=== PATIENT | male | born 1990 | race Two or more races ===

== ENCOUNTER 2020-08-23 10:46 | Outpatient (REF) | payer OTHER, SELFPAY | END 2020-08-23 10:47 | disposition home or self-care (01) | LOC: HO.LAB 10:46 | PROVIDERS: Visit Provider Internal Medicine | DX: Z20.822 Contact with and (suspected) exposure to COVID-19 (principal) | CPT/HCPCS: 36415; C9803; U0003 ==

== ENCOUNTER 2021-03-04 12:07 | Emergency (ER) | payer SELFPAY ==
[2021-03-04 12:13] VITALS: BP 111/64; PULSE 99; RESP 16; TEMP 37.3; O2SAT 98; BMI 21.4
--- NOTE | 2021-03-04 12:48 | ED.SKABFB ---
HPI - Skin/Abscess/Foreign Bdy General Chief complaint: Skin/Abscess/Foreign Body Stated complaint: Abbcess Time Seen by Provider: 03/04/21 12:25 Source: patient Mode of arrival: ambulatory Limitations: no limitations History of Present Illness HPI narrative: 30 y/o male presenting to the ER with red, swollen and tender bug bites to his anterior left lower leg that have been worsening for the last 4 days. He recalls being bit by mosquitoes at the time. Since then he has 2 spots on his left aguilar that have gotten red, warm and swollen. No tick bites. No fevers. He has 2 small pustules in the center of each lesion. He is ambulating normally. He has no calf pain, swelling or tenderness. MD complaint: insect bite/sting and abscess/boil Onset (ago): day(s) (4) Tetanus up to date: yes Location: LLE Severity: moderate Severity scale (1-10): 5 Quality: burning and aching Pain Consistency: constant Relieving factors: none Exacerbating factors: none Context: witnessed insect bite Associated symptoms: denies other symptoms Treatments prior to arrival: none Related Data Previous Rx's Medication Instructions Recorded cephalexin 500 mg capsule 500 mg PO Q6H 7 Days #28 cap 03/04/21 doxycycline monohydrate 100 mg 100 mg PO BID #14 cap 03/04/21 capsule Allergies Allergy/AdvReac Type Severity Reaction Status Date / Time No Known Allergies Allergy Unverified 04/14/20 15:50 Review of Systems Constitutional: Constitutional: Denies chills, Denies fatigue and Denies fever(s) Eyes: Eyes: Reports no additional eye complaints ENT: Denies neck pain and Denies sore throat Cardiovascular: Cardiovascular: Denies chest pain Respiratory: Respiratory: Denies cough Gastrointestinal: Gastrointestinal: Denies diarrhea, Denies nausea and Denies vomiting Musculoskeletal: Musculoskeletal: Denies myalgias and Denies neck pain Integumentary/Breasts: Skin/Breast: Reports furuncle, Reports swelling, Reports lesions, Reports skin pain and Reports skin swelling Endocrine: Endocrine: Denies fatigue Hematologic/Lymphatic: Hematologic/Lymphatic: Denies easy bleeding, Denies easy bruising and Denies lymphadenopathy PMFSH Social History Social History Advance Directives: No Advance Directives Information Provided: No Physical Exam Vital Signs: Vital Signs: Last Vital Signs Temp 99.1 F 03/04/21 12:13 Pulse 99 03/04/21 12:13 Resp 16 03/04/21 12:13 BP 111/64 03/04/21 12:13 Pulse Ox 98 03/04/21 12:13 Body Mass Index 21.4 Appearance: Alert. Oriented X3. No acute distress. HEENT: normal inspection CVS: Normal heart rate and rhythm. Pulses normal. Respiratory: No respiratory distress. Skin: Skin warm and dry. Normal skin color. Normal skin turgor. No rashes. Extremities: left lower leg with 2 moderate sized erythematous areas with central pustules, no fluctuance. no calf tenderness. NV intact distally. Neuro: Oriented X 3. No motor deficit. No sensory deficit. Course Course Course Narrative: 30 y/o male presenting with 2 areas of tenderness, redness and warmth after he was bit by insects 4 days ago. Exam is consistent with cellulitis. No drainage abscess at this time. Doubt Lyme. Will treat with PO abx, warm compresses and have him follow up with his PCP early next week. Stable for d/c home. Discharge Plan Discharge Clinical Impression: Cellulitis Qualifiers: Site of cellulitis: extremity Site of cellulitis of extremity: lower extremity Laterality: left Qualified Code(s): L03.116 - Cellulitis of left lower limb Patient Disposition: Home, Self-Care Instructions: Cellulitis (ED), Abscess (ED) Additional Instructions: Take the prescribed antibiotics as directed. Use warm compresses several times per day to the areas. Take Motrin and/or Tylenol as needed for pain. If you develop new or worsening symptoms call 911 or come back to the ER for further evaluation. Prescriptions: New cephalexin 500 mg capsule 500 mg PO Q6H 7 Days Qty: 28 RF: 0 doxycycline monohydrate 100 mg capsule 100 mg PO BID Qty: 14 RF: 0 Interventions: ED Discharge Assessment Last Done: 03/04/21 12:55 Discharge Date/Time: 03/04/21 12:56
== END 2021-03-04 12:56 | disposition home or self-care (01) ==
PROVIDERS: Emergency Provider Emergency Medicine Emergency Medical Services
DX: L03.116 Cellulitis of left lower limb (principal)
CPT/HCPCS: 99283

== ENCOUNTER 2021-03-07 15:27 | Emergency (ER) | payer SELFPAY ==
[2021-03-07 17:06] VITALS: BP 107/73; PULSE 77; RESP 18; TEMP 37.2; O2SAT 98; BMI 22.1
[2021-03-07 17:42] LABS: MANUAL DIFF FLAG NO
[2021-03-07 17:43] LABS: Basophils Percent Auto 0.5 % (0-2); Eosinophils Absolute Auto 0.1 X10*3/uL (0.0-0.4); Hemoglobin 13.1 g/dl (14.0-18.0); Imm Gran Abs Auto 0.02 X10*3/uL (0.00-0.03); Imm Gran Pct Auto 0.2 % (0.0-0.4); Lymphocytes Absolute Auto 2.4 X10*3/uL (1.2-4.9); Lymphocytes Percent Auto 28.2 % (20-40); Mean Corpuscular HGB Conc 33.6 g/dl (31.0-36.0); Mean Corpuscular Volume 92.2 fL (80-98); Mean Platelet Volume 9.5 fL (9.4-12.4); Monocytes Absolute Auto 0.8 X10*3/uL (0.1-1.2); Monocytes Percent Auto 9.4 % (2-11); Neutrophils Absolute Auto 5.1 X10*3/uL (2.0-8.3); Neutrophils Percent Auto 60.7 % (45-73); Platelet Count 311 X10*3/uL (160-400); Red Blood Count 4.23 X10*6/uL (4.60-5.80); Red Cell Distribution Width 12.2 % (11.0-16.0); White Blood Count 8.4 X10*3/uL (4.8-10.8)
[2021-03-07 18:03] LABS: Anion Gap 11 (12-20); Blood Urea Nitrogen 13 mg/dL (9-16); Calcium 9.8 mg/dL (8.4-10.2); Carbon Dioxide 27 mmol/L (22-29); Chloride 106 mmol/L (96-108); Creatinine Clr Calc Pharmacy 115.7; Estimated Glomerular Filt Rate > 60; Glucose Random 134 mg/dL (60-115); Potassium 3.7 mmol/L (3.3-5.1); Sodium 140 mmol/L (135-145)
[2021-03-07 20:57] VITALS: BP 118/70; PULSE 65; RESP 16; TEMP 36.3; O2SAT 98
--- NOTE | 2021-03-07 21:09 | ED_ITS ---
HPI - Skin/Abscess/Foreign Bdy General Chief complaint: Skin/Abscess/Foreign Body Stated complaint: bug bite Time Seen by Provider: 03/07/21 20:58 Source: patient Mode of arrival: ambulatory Limitations: no limitations History of Present Illness HPI narrative: Patient tells me he was seen on March 04 for cellulitis of his left lower extremity. He was started on cephalexin and doxycycline. He is here today because he feels like the wounds are draining. He tells me the redness is much improved. He has been doing warm compresses daily. He has had no fevers or chills. He has been taking his antibiotics as prescribed. He tells me initially he felt something bite to his left lower extremity and then noticed swelling and redness the next day. He did not see the bug that bit him. Related Data Previous Rx's Medication Instructions Recorded cephalexin 500 mg capsule 500 mg PO Q6H 7 Days #28 cap 03/04/21 doxycycline monohydrate 100 mg 100 mg PO BID #14 cap 03/04/21 capsule Allergies Allergy/AdvReac Type Severity Reaction Status Date / Time No Known Allergies Allergy Unverified 04/14/20 15:50 Review of Systems Review of Systems: Yes all other systems are reviewed and are negative Constitutional: Constitutional: Reports no additional constitutional complaints, Denies body ache(s), Denies chills, Denies fever(s), Denies headache(s) and Denies weakness Eyes: Eyes: Reports no additional eye complaints and Denies change in vision ENT: Reports system reviewed and no additional complaints, except as documented, Denies dizziness, Denies headache(s), Denies nasal congestion, Denies nasal discharge and Denies neck pain Cardiovascular: Cardiovascular: Reports no additional cardiovascular complaints, Denies chest pain, Denies leg edema and Denies dyspnea Respiratory: Respiratory: Reports no additional respiratory complaints, Denies cough and Denies dyspnea Gastrointestinal: Gastrointestinal: Reports no additional gastrointestinal complaints, Denies abdominal pain, Denies diarrhea, Denies nausea and Denies vomiting Genitourinary: Genitourinary: Denies urinary incontinence Musculoskeletal: Musculoskeletal: Reports no additional musculoskeletal complaints, Denies back pain, Denies arthralgias, Denies joint swelling, Denies neck pain, Denies numbness and Denies tingling Integumentary/Breasts: Skin/Breast: Reports system reviewed and no additional complaints, except as docu, Reports swelling, Reports erythema and Reports rash Neurologic: Reports system reviewed and no additional complaints, except as documented, Denies Abnormal speech present, Denies dizziness, Denies headache(s), Denies numbness, Denies tingling and Denies weakness PMFSH Past Medical History Attestation statement: The following information was validated with the patient. Source: old records reviewed and nursing notes reviewed Medical History Appendicitis Social History Social History Advance Directives: No Advance Directives Information Provided: No Physical Exam Vital Signs: Vital Signs: Last Vital Signs Temp 97.4 F 03/07/21 20:57 Pulse 65 03/07/21 20:57 Resp 16 03/07/21 20:57 BP 118/70 03/07/21 20:57 Pulse Ox 98 03/07/21 20:57 Body Mass Index 22.1 Const: General: cooperative, healthy appearing, comfortable and no acute distress Orientation/consciousness: patient oriented x3 Limitations: no li mitations HENMT: Head: Yes normal to inspection Ears: hearing grossly normal bilaterally General nose exam: Normal external nose present Face and sinus: Yes normal facial exam Mouth: Normal oral and palatal mucosa present Throat: Yes posterior oropharynx normal Eyes: General: appearance normal, both eyes and all related structures Pupils: Equal, round and reactive pupils present Neck: Neck: Yes normal visual inspection Chest: Chest palpation & inspection: normal inspection of the chest Resp: Effort & Inspection: normal respiratory effort Auscultation: clear to auscultation bilaterally Cardio: Rate: regular rate Rhythm: regular rhythm Peripheral pulses: Peripheral pulses 2+ throughout GI: Inspection: Yes normal to inspection Palpation (GI): Soft to palpation and nontender Auscultation: normal bowel sounds Back/Spine/Pelvis: Thoracic/Lumbar Spine: thoracic and lumbar spine normal to inspection Skin: Other: General skin exam: no rashes or lesions noted Neuro: General: patient oriented x3, no focal motor deficits and normal sensation to monofilament Cranial nerves: Yes Equal, round and reactive pupils present Cognition (Neuro): normal cognition Speech: No Abnormal speech present Gait exam (Neuro): Normal gait present Motor exam (neuro): 5/5 motor strength present throughout Extrem: General: Yes normal to inspection Course Course Course Narrative: Patient being treated for cellulitis in the left lower extremity with doxycycline and cephalexin for the last 2 days. The patient feels like the redness is improving but feels like there is more drainage centrally from the wound. No reports of fevers or chills at home. Labs from triage are unremarkable. To the leg there are 2 circular areas with central fluctuance. I was able to express some purulence drainage from both sites and a wound culture was sent. There is no obvious signs of a deeper fluid collection. The patient is appears well with no fever. Recommend continue antibiotics and warm compresses at home The area was marked with a skin marker. Reviewed worrisome signs and symptoms of when to return to the emergency department. Comfortable discharge home. MDM - Skin/Abscess/Foreign Bdy Lab Data Result diagrams: 03/07/21 17:38 03/07/21 17:37 Labs: Lab Results 03/07/21 03/07/21 Range/Units 17:37 17:38 WBC 8.4 (4.8-10.8) X10*3/uL RBC 4.23 L (4.60-5.80) X10*6/uL Hgb 13.1 L (14.0-18.0) g/dl Hct 39.0 L (42-52) % MCV 92.2 (80-98) fL MCH 31.0 (27.0-33.0) pg MCHC 33.6 (31.0-36.0) g/dl RDW 12.2 (11.0-16.0) % Plt Count 311 (160-400) X10*3/uL MPV 9.5 (9.4-12.4) fL Immature Gran % (Auto) 0.2 (0.0-0.4) % Neut % (Auto) 60.7 (45-73) % Lymph % (Auto) 28.2 (20-40) % [place] % (Auto) 9.4 (2-11) % Eos % (Auto) 1.0 (0-4) % Baso % (Auto) 0.5 (0-2) % Lymph # (Auto) 2.4 (1.2-4.9) X10*3/uL [place] # (Auto) 0.8 (0.1-1.2) X10*3/uL Eos # (Auto) 0.1 (0.0-0.4) X10*3/uL Baso # (Auto) 0.0 (0.0-0.2) X10*3/uL Abs Immat Gran (auto) 0.02 (0.00-0.03) X10*3/uL Absolute Neuts (auto) 5.1 (2.0-8.3) X10*3/uL Absolute Nucleated RBC 0.000 (0.0-0.012) X10*3/uL Nucleated RBC % (auto) 0.0 (0.0-0.2) /100WBC Sodium 140 (135-145) mmol/L Potassium 3.7 (3.3-5.1) mmol/L Chloride 106 (96-108) mmol/L Carbon Dioxide 27 (22-29) mmol/L Anion Gap 11 L (12-20) BUN 13 (9-16) mg/dL Creatinine 0.89 (0.5-1.4) mg/dL Estim Creat Clear Calc 115.7 Estimated GFR > 60 Random Glucose 134 H (60-115) mg/dL Calcium 9.8 (8.4-10.2) mg/dL Discharge Plan Discharge Clinical Impression: Cellulitis Patient Disposition: Home, Self-Care Instructions: Cellulitis (ED) Additional Instructions: Continue warm compresses We will call you if your antibiotics need to be changed Prescriptions: No Action cephalexin 500 mg capsule 500 mg PO Q6H 7 Days Qty: 28 RF: 0 doxycycline monohydrate 100 mg capsule 100 mg PO BID Qty: 14 RF: 0 Referrals: Physician,None [Primary Care Provider] - 2 days Interventions: ED Discharge Assessment Last Done: 03/07/21 21:14 Discharge Date/Time: 03/07/21 21:15
== END 2021-03-07 21:15 | disposition home or self-care (01) ==
PROVIDERS: Emergency Provider Emergency Medicine
DX: L03.116 Cellulitis of left lower limb (principal)
CPT/HCPCS: 36415; 80048; 85025; 87071; 87077; 87186; 87205; 99283

== ENCOUNTER → 2024-07-09 12:34 | Outpatient (BNVA) | payer OTHER, SELFPAY | PROVIDERS: Visit Provider Physician Assistant Medical | DX: S29.011A Strain of muscle and tendon of front wall of thorax, initial encounter (principal); S39.011A Strain of muscle, fascia and tendon of abdomen, initial encounter; W11.XXXA Fall on and from ladder, initial encounter | CPT/HCPCS: 71101; 99203 ==

== ENCOUNTER 2024-07-09 14:27 | Emergency (ER) | payer OTHER, SELFPAY ==
--- NOTE | ~2024-07-09 | CT_ITS ---
EXAMINATION: CT CHEST WITHOUT CONTRAST CLINICAL INFORMATION: Evaluate for right rib fractures. Fall from ladder. COMPARISON: Same-day radiographs TECHNIQUE: Multidetector volumetric CT imaging of the chest was done. Axial MIP volume rendering provided. Sagittal and coronal reformatted images were obtained. This CT examination was performed using dose optimization techniques as appropriate, variously including the following: *Automated exposure control *Adjustment of mA and/or kV according to patient size (this includes techniques or standardized protocols for targeted exams where dose is matched to indication/reason for exam; i.e. extremities or head) *Use of iterative reconstruction technique DLP: 262 mGy-cm FINDINGS: ENVELOPE ADJUSTER: Normal LUNGS: The lungs are clear with no evidence of inflammation or nodules. MEDIASTINUM: The mediastinum is normal. CORONARY ARTERY CALCIFICATION: None visualized on this study. PLEURA: There is no pleural effusion. No pleural mass or thickening. AXILLA: No lymphadenopathy. UPPER ABDOMEN: Unremarkable. OSSEOUS STRUCTURES: Unremarkable. Specifically, no rib fracture is identified. CT/CT chest wo IV con IMPRESSION: No rib fracture. No acute cardiopulmonary findings. Fleischner guidelines were followed. Electronically signed by: Kamran Farias MD 07/09/2024 06:13 PM [facility]
[2024-07-09 14:42] VITALS: BP 105/62; PULSE 61; RESP 18; TEMP 36.8; O2SAT 99; BMI 26.4
--- NOTE | 2024-07-09 14:49 | ED_ITS ---
HPI - Fall General Chief Complaint: Fall Stated Complaint: fall at work chest wall pain sent [facility] Time Seen by Provider: 07/09/24 17:41 Source: patient, RN notes reviewed and old records reviewed Mode of arrival: ambulatory Limitations: no limitations History of Present Illness ED Provider: Chan NARVAEZ Narrative: 34-year-old male presents for evaluation of right-sided flank pain and chest wall pain. Patient reports that yesterday he fell approximately 7 ft from a ladder. He landed on the ladder with his right side. He has continued pain in his worse with movement He did not hit his head or lose consciousness He reports at rest he has 4/10 pain and is achy When moving he has 8/10 pain He denies any cough, shortness of breath. No nausea vomiting, diarrhea He was sent from [facility] for right-sided chest wall pain Related Data Previous Rx's ?Medication ?Instructions ?Recorded cephalexin 500 mg capsule 500 mg PO Q6H 7 days #28 caps 03/04/21 doxycycline monohydrate 100 mg 100 mg PO BID #14 caps 03/04/21 capsule Allergies Allergy/AdvReac Type Severity Reaction Status Date / Time No Known Allergies Allergy Verified 07/09/24 14:46 Review of Systems 2 Constitutional: Constitutional: Denies body ache(s), Denies chills and Denies fever(s) Eyes: Eyes: Denies blurry vision ENT: Denies vertigo and Denies dizziness Cardiovascular: Cardiovascular: Reports chest pain (right chest wall pain), Reports chest pain at rest, Reports chest pain with activity and Denies dyspnea Respiratory: Respiratory: Denies cough and Denies dyspnea Gastrointestinal: Gastrointestinal: Reports abdominal pain, Denies nausea and Denies vomiting Musculoskeletal: Musculoskeletal: Reports back pain Integumentary/Breasts: Skin/Breast: Denies rash Neurologic: Denies vertigo and Denies dizziness Psychiatric: Psychiatric: Denies anxiety PMF Past Medical History Medical History Appendicitis Social History Social History (System 05/14/23 @ 16:47 by Melissa George) Do you have a plan to hurt others: No Plan Physical Exam 2 Vital Signs: Vital Signs: Last Vital Signs Temp 98.2 F 07/09/24 17:54 Pulse 56 07/09/24 17:54 Resp 20 07/09/24 17:54 BP 108/62 07/09/24 17:54 Pulse Ox 99 07/09/24 17:54 O2 Del Method Room Air 07/09/24 17:54 BMI result Body Mass Index 26.4 Const: General: healthy appearing, comfortable, no acute distress, alert and awake Nutritional Appearance: well nourished Orientation/consciousness: p atient oriented x3 HEENT: Head: Yes normocephalic and Yes atraumatic Eyes: Eyelids: Yes eyelids normal Conjunctivae: conjunctivae normal S clerae: sclerae normal Corneas: corneas normal Pupils: Equal, round and reactive pupils present EOM: EOMs intact bilaterally Neck: Neck: Yes full ROM Chest: Other: Tenderness in the right anterior axillary line midaxillary line and posterior axillary line at the level of the 8th through 12th ribs. Chest palpation & inspection: normal inspection of the chest and no crepitus Resp: Effort & Inspection: normal respiratory effort, able to speak in complete sentences, no audible wheezes and not labored Auscultation: clear to auscultation bilaterally Cardio: Rate: regular rate Rhythm: regular rhythm GI: Inspection: No distended Palpation (GI): Soft to palpation, not firm, Tenderness to palpation present (GI) in the RUQ; James's sign negative, no guarding and not rigid Auscultation: normoactive bowel sounds Skin: General skin exam: elasticity normal Neuro: General: patient oriented x3 Cranial nerves: Yes Equal, round and reactive pupils present and Yes Bilaterally intact EOM present Cognition (Neuro): normal cognition Course Course Course Narrative: This is a rapid medical exam performed by Geraldine Manzanares PA-C. The patient is a 34-year-old male who presents with right-sided rib pain x1 day. Patient was seen at the [facility], sent here for additional imaging. Chest x-ray obtained, no obvious rib fracture. On exam, patient is having palpable pain along right lateral and lower rib border. No deformity noted. Obtaining a CT scan. There was no indication for labs at this time. The patient is hemodynamically stable and can return to the waiting room pending his full medical assessment. Medical Decision Making Medical Decision Making MDM Narrative: 34-year-old male presents for evaluation of right-sided chest wall pain after a fall yesterday. He does have mild abdominal tenderness but mostly was tenderness over his ribs in the right lateral wall. His labs show no concerning abnormalities. He has a history of anemia is hemoglobin hematocrit are actually improved from his most recent labs 3 years ago. His renal function is within normal limits. CT scan of the chest without contrast shows no obvious rib fracture, pneumothorax no obvious fluid around the liver to suggest visceral injury. The patient will be discharged home with symptomatic care Differential Diagnosis Differential Diagnoses: The differential diagnosis associated with the presentation includes Contusion Rib fracture Pneumothorax Liver laceration Lab Data MDM Lab Attestation statement: I reviewed the patient's lab results. No leukocytosis. The patient has a chronic normocytic anemia. Normal platelet count. No significant electrolyte abnormalities 07/09/24 15:54 07/09/24 15:54 Labs: Lab Results 07/09/24 Range/Units 15:54 WBC 6.7 (4.8-10.8) X10*3/uL RBC 4.51 L (4.60-5.80) X10*6/uL Hgb 13.4 L (14.0-18.0) g/dl Hct 40.7 L (42.0-52.0) % MCV 90.2 (80.0-98.0) fL MCH 29.7 (27.0-33.0) pg MCHC 32.9 (31.0-36.0) g/dl RDW 12.3 (11.0-16.0) % Plt Count 314 (160-400) X10*3/uL MPV 9.6 (9.4-12.4) fL Immature Gran % (Auto) 0.3 (0.0-0.4) % Neut % (Auto) 56.1 (45-73) % Lymph % (Auto) 33.0 (20-40) % [place] % (Auto) 9.7 (2-11) % Eos % (Auto) 0.3 (0-4) % Baso % (Auto) 0.6 (0-2) % Lymph # (Auto) 2.2 (1.2-4.9) X10*3/uL [place] # (Auto) 0.7 (0.1-1.2) X10*3/uL Eos # (Auto) 0.0 (0.0-0.4) X10*3/uL Baso # (Auto) 0.0 (0.0-0.2) X10*3/uL Abs Immat Gran (auto) 0.02 (0.00-0.03) X10*3/uL Absolute Neuts (auto) 3.7 (2.0-8.3) x10*3/uL Absolute Nucleated RBC 0.000 (0.0-0.012) X10*3/uL Nucleated RBC % (auto) 0.0 (0.0-0.2) /100WBC Sodium 138 (135-145) mmol/L Potassium 3.9 (3.3-5.1) mmol/L Chloride 109 H (96-108) mmol/L Carbon Dioxide 25 (22-29) mmol/L Anion Gap 8 L (12-20) BUN 15 (9-16) mg/dL Creatinine 0.82 (0.5-1.4) mg/dL Estim Creat Clear Calc 121.6 Estimated GFR > 60 Random Glucose 88 (60-115) mg/dL Calcium 10.2 (8.4-10.2) mg/dL Independent Interpretation I performed an independent interpretation of an: CT Scan (Agree with Radiology interpretation) Radiology Impression Discussion of test interpretation with radiology: I have reviewed the radiologist's reading. Radiologist Impression: FINDINGS: SENIOR BEHAVIORAL SCIENTIST: Normal LUNGS: The lungs are clear with no evidence of inflammation or nodules. MEDIASTINUM: The mediastinum is normal. CORONARY ARTERY CALCIFICATION: None visualized on this study. PLEURA: There is no pleural effusion. No pleural mass or thickening. AXILLA: No lymphadenopathy. UPPER ABDOMEN: Unremarkable. OSSEOUS STRUCTURES: Unremarkable. Specifically, no rib fracture is identified. IMPRESSION: No rib fracture. No acute cardiopulmonary findings. Fleischner guidelines were followed. Electronically signed by: Kamran Farias MD 07/09/2024 06:13 PM [facility] Discharge Plan Discharge Clinical Impression: Right-sided chest wall pain Patient Disposition: Home, Self-Care Instructions: Chest Wall Pain (ED) Additional Instructions: Your CT scan did not show any evidence of acute traumatic injuries. Your pain is most likely related to a contusion. Use ibuprofen/Tylenol for pain Follow-up with your primary doctor, return for new or worsening symptoms Prescriptions: No Action cephalexin 500 mg capsule 500 mg PO Q6H 7 Days Qty: 28 0RF doxycycline monohydrate 100 mg capsule 100 mg PO BID Qty: 14 0RF Print Language: B[place]
[2024-07-09 15:57] LABS: MANUAL DIFF FLAG NO
[2024-07-09 16:05] LABS: Basophils Percent Auto 0.6 % (0-2); Eosinophils Percent Auto 0.3 % (0-4); Hematocrit 40.7 % (42.0-52.0); Hemoglobin 13.4 g/dl (14.0-18.0); Imm Gran Abs Auto 0.02 X10*3/uL (0.00-0.03); Imm Gran Pct Auto 0.3 % (0.0-0.4); Lymphocytes Absolute Auto 2.2 X10*3/uL (1.2-4.9); Mean Corpuscular HGB Conc 32.9 g/dl (31.0-36.0); Mean Corpuscular Hemoglobin 29.7 pg (27.0-33.0); Mean Corpuscular Volume 90.2 fL (80.0-98.0); Mean Platelet Volume 9.6 fL (9.4-12.4); Monocytes Absolute Auto 0.7 X10*3/uL (0.1-1.2); Monocytes Percent Auto 9.7 % (2-11); Neutrophils Absolute Auto 3.7 x10*3/uL (2.0-8.3); Neutrophils Percent Auto 56.1 % (45-73); Platelet Count 314 X10*3/uL (160-400); Red Blood Count 4.51 X10*6/uL (4.60-5.80); Red Cell Distribution Width 12.3 % (11.0-16.0); White Blood Count 6.7 X10*3/uL (4.8-10.8)
[2024-07-09 16:13] LABS: Anion Gap 8 (12-20); Blood Urea Nitrogen 15 mg/dL (9-16); Calcium 10.2 mg/dL (8.4-10.2); Carbon Dioxide 25 mmol/L (22-29); Chloride 109 mmol/L (96-108); Creatinine Clr Calc Pharmacy 121.6; Estimated Glomerular Filt Rate > 60; Glucose Random 88 mg/dL (60-115); Potassium 3.9 mmol/L (3.3-5.1); Sodium 138 mmol/L (135-145)
[2024-07-09 17:54] VITALS: BP 108/62; PULSE 56; RESP 20; TEMP 36.8; O2SAT 99
[2024-07-09] MEDS: Acetaminophen 325 MG TABLET 975 MG PO (18:42)
[2024-07-09 18:44] VITALS: BP 108/62; PULSE 56; RESP 20; TEMP 36.8; O2SAT 99
== END 2024-07-09 19:06 | disposition home or self-care (01) ==
PROVIDERS: Physician Assistant Medical; Emergency Provider Emergency Medicine
DX: Z04.2 Encounter for examination and observation following work accident (principal); R07.89 Other chest pain
CPT/HCPCS: 36415; 71250; 80048; 85025; 99283; 99284

== ENCOUNTER → 2024-08-31 12:14 | Outpatient (BNVA) | payer OTHER, SELFPAY | PROVIDERS: Visit Provider Physician Assistant Medical | DX: S63.501A Unspecified sprain of right wrist, initial encounter (principal); W00.0XXA Fall on same level due to ice and snow, initial encounter | CPT/HCPCS: 73110; 99203 ==

== ENCOUNTER 2024-09-09 18:23 | Outpatient (REF) | payer OTHER, SELFPAY ==
--- NOTE | ~2024-09-09 | MR_ITS ---
EXAMINATION: MR WRIST WITHOUT IV CONTRAST RIGHT HISTORY: FOOSH right side pain limited ROM and swelling. TECHNIQUE: Axial T1 and fat-suppressed T2, coronal T1 and fat-suppressed proton density, sagittal T2, and sagittal oblique T1 weighted MR images of the right wrist were obtained. COMPARISON: Correlation is made with plain films of the right wrist dated 08/31/2024. FINDINGS: There is marked bone marrow edema involving the distal radial metaphysis and epiphysis. There is cortical disruption at the dorsal aspect of the distal radius, consistent with a nondisplaced fracture. Remaining bone marrow signal intensity is normal. There is no significant wrist joint effusion. The scapholunate and lunotriquetral ligaments appear intact. There is increased T2 signal intensity at the ulnar attachment of the triangular fibrocartilage, suggestive of a partial tear. There is fluid within the tendon sheaths of the flexor carpi radialis brevis tendons, compatible with tenosynovitis. No tendon tear is identified. MR/MR wrist RT wo con IMPRESSION: 1. Findings consistent with a nondisplaced fracture of the distal radial metaphysis. 2. Increased signal intensity at the ulnar attachment of the triangular fibrocartilage, suggestive of a partial tear. 3. Tenosynovitis of the extensor carpi radialis longus and brevis tendons. Electronically signed by: Paul Zavala MD 09/10/2024 07:39 AM [facility]
--- OUTSIDE RECORDS SUMMARY | 2024-09-09 18:25 | XMS_ITS | Encounter Summary ---
Author Organization [facility] Address [address] [place] [phone] Phone Care Team Providers Care Second Chef Name Role Phone Iggy Mendez MD Primary Care Provider [phone] Encounter Details Date Type Department Care Team (Late st Contact Info) Description 01/05/2011 Documentation EM Family Medicine [address] [place] [address] Family Medicine, Physician [address] [place], [place] [id number] Social History Tobacco Use Types Packs/Day Years Used Date Smoking Tobacco: Never Assessed Sex and Gender Information Value Date Recorded Sex Assigned at Not on file Legal Sex Male 4:22 PM EDT Gender Identity Not on file Sexual Orientation Not on file documented as of this encounter Plan of Treatment Not on file documented as of this encounter Visit Diagnoses Not on filedocumented in this encounter Care Teams Second Chef Relationship Specialty Start Date End Date Iggy Mendez MD [address] [place] [id number] PCP - General 03/08/17 11/07/22 documented as of this encounter
--- OUTSIDE RECORDS SUMMARY | 2024-09-09 18:25 | XMS_ITS | Clinical Summary ---
Author Organization [facility] Address [address] [place] [address] Phone Care Team Providers Care Machine Finisher Name Role Phone Unavailable Primary Care Provider Unavailabl e Immunizations Immunization Administration Dates Next Due DTP 09/27/1994, 1,1989,1988,1989 Hep B, ped/adol 04/16/2002,06/06/2001,05/14/2001 Hib (PRP-T) 06/13/1990 MMR 06/16/2001, 1,09/27/1994,1989 OPV 09/27/1994, 1,1989,1988 Td (adult) (MBL), 2 Lf tetan us toxoid, PF, adsorbed 06/16/2001 Social History Tobacco Use Types Packs/Day Years Used Date Smoking Tobacco: Never Assessed Sex and Gender Information Value Date Recorded Sex Assigned at Not on file Legal Sex Male 4:22 PM EDT Gender Identity Not on file Sexual Orientation Not on file Plan of Treatment Health Maintenance Due Date Last Done Comments DTaP,Tdap,and Td Vaccines (6 - Tdap) 06/17/2001 06/16/2001, 09/27/1994, 11/17/1990, Additional history exists Varicella Vaccines (1 of 2 - 13+ 2-dose series) 2002 Hepatitis B Vaccines (3 of 3 - 3-dose series) 06/11/2002 04/16/2002, 06/06/2001, 05/14/2001 Consider Men B Vaccine (1 of 2 - Bexsero 2-dose series) 2005 Influenza Vaccines (#1) 2024 COVID-19 Vaccine ( season) 2024 HIB Vaccines Completed 06/13/1990 IPV Vaccines Completed 09/27/1994, 10/28, 1989, Additional history exists MMR Vaccines Completed 06/16/2001, 04/28, 09/27/1994, Additional history exists HPV Vaccines Aged Out No longer eligi ble based on patient's age to complete this topic Hepatitis A Vaccines Aged Out No long er eligible based on patient's age to complete this topic Men B Vaccine Aged Out No longer elig ible based on patient's age to complete this topic Meningococcal Vaccine Aged Out No maricruz danna eligible based on patient's age to complete this topic Pneumococcal Vaccine Aged Out No long er eligible based on patient's age to complete this topic
== END 2024-09-09 18:24 | disposition home or self-care (01) ==
LOC: HO.MRI 18:23
PROVIDERS: Visit Provider Internal Medicine
DX: R60.0 Localized edema (principal); M25.531 Pain in right wrist
CPT/HCPCS: 73221

== ENCOUNTER → 2024-09-09 18:33 | Outpatient (BNV) | payer OTHER, SELFPAY | PROVIDERS: Visit Provider Radiology Diagnostic Radiology | DX: S52.591A Other fractures of lower end of right radius, initial encounter for closed fracture (principal); M65.841 Other synovitis and tenosynovitis, right hand | CPT/HCPCS: 73221 ==

== ENCOUNTER → 2024-09-10 11:04 | Outpatient (BNVA) | payer OTHER, SELFPAY | PROVIDERS: Visit Provider Physician Assistant Medical | DX: S52.501A Unspecified fracture of the lower end of right radius, initial encounter for closed fracture (principal); S63.591A Other specified sprain of right wrist, initial encounter; W00.0XXA Fall on same level due to ice and snow, initial encounter | CPT/HCPCS: 99213 ==

== ENCOUNTER 2024-09-22 08:42 | Outpatient (REF) | payer OTHER, SELFPAY ==
--- NOTE | ~2024-09-22 | XR_ITS ---
CLINICAL HISTORY: M79.641 - Pain in right hand 4 view right wrist Comparison: None Findings: Bones intact. No dislocations. No significant loss of joint space, osteophyte, or erosions. No radiopaque foreign body. IMPRESSION: 1. No acute findings This document has been electronically signed by: Jez Block MD on 09/23/2024 10:17:57
--- OUTSIDE RECORDS SUMMARY | 2024-09-22 09:15 | XMS_ITS | Encounter Summary ---
Author Organization [facility] Address [address] [place] [address] Phone Care Team Providers Care Retail Service Lead Merchandiser Name Role Phone Iggy Mendez MD Primary Care Provider [phone] Encounter Details Date Type Department Care Team (Late st Contact Info) Description 03/14/2017 Conversion Encounter [facility] [employer] [facility] [address] [place] [address] Social History Tobacco Use Types Packs/Day Years [...] on filedocumented in this encounter Care Teams Retail Service Lead Merchandiser Relationship Specialty Start Date End Date Iggy Mendez MD [address] [place] [address] PCP - General 03/08/17 11/07/22 documented as of this encounter
--- OUTSIDE RECORDS SUMMARY | 2024-09-22 09:15 | XMS_ITS | Encounter Summary ---
Author Organization [facility] Address [address] [place] [address] Phone Care Team Providers Care Lining Inserter Name Role Phone Iggy Mendez MD Primary Care Provider [phone] Encounter Details Date Type Department Care Team (Late st Contact Info) Description 01/05/2011 Documentation EM Family [facility] [address] [place] [address] Family Medicine, Physician [address] [place], [place] [phone] Social History Tobacco Use Types Packs/Day Years [...] on filedocumented in this encounter Care Teams Lining Inserter Relationship Specialty Start Date End Date Iggy Mendez MD [address] [place] [address] PCP - General 03/08/17 11/07/22 documented as of this encounter
--- OUTSIDE RECORDS SUMMARY | 2024-09-22 09:15 | XMS_ITS | Clinical Summary ---
Author Organization [facility] Address [address] [place] [address] Phone Care Team Providers Care Gallery Director Name Role Phone Unavailable Primary Care Provider [...]
== END 2024-09-22 08:43 | disposition home or self-care (01) ==
LOC: HO.HOSX 08:42
DX: M79.641 Pain in right hand (principal); S63.501A Unspecified sprain of right wrist, initial encounter
CPT/HCPCS: 73110; 99202

== ENCOUNTER 2024-09-22 10:38 | Outpatient (AMB) | payer OTHER, SELFPAY ==
--- NOTE | 2024-09-22 10:41 | MHC.OFFVIS ---
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 Patient reports that he slipped on ice and fell on an outstretched hands twice while at work on 08/31/24. He was seen [facility] the day of the injury. He has been wearing a brace at all times, removes for hygiene purposes. He has pain in the wrist with lifting and grasping. He has some mild numbness at the base of the thumb. He is no longer taking anything for his pain, but he was previously taking Ibuprofen after the injury. He currently is on light duty with no use of the right hand. Allergies No Known Allergies Allergy (Verified 07/09/24 14:46) HPI HPI WC LOCKS TENDER -RT wrist sprain DOI 08/31/24: Details: Elio is a 34 year old right hand dominant male who presents today as a new patient for evaluation of his Right Wrist WC Injury from 08/31/24. Patient reports that he slipped on ice and fell on an outstretched hands twice while at work on 08/31/24. He was seen at the [facility] the day of the injury. He has been wearing a brace at all times, removes for hygiene purposes. He has pain in the wrist with lifting and grasping. He has some mild numbness at the base of the thumb. He is no longer taking anything for his pain, but he was previously taking Ibuprofen after the injury. He currently is on light duty with no use of the right hand. [facility] Medical History (Updated 09/23/24 @ 09:31 by SULTANA Pleitez) Appendicitis Surgical History (Updated 09/22/24 @ 11:00 by Christie Taylor CMA) Hx of appendectomy Social History (Updated 09/22/24 @ 11:01 by Christie Taylor CMA) Current occupational status: employed Current occupation: Maintenance Review of Systems Const All systems reviewed & are unremarkable except as noted in HPI and below Physical Exam Vital Signs: BMI result Body Mass Index 24.3 Extrem Other: Patient is alert, oriented, and in no acute distress. Neuro: Normal sensation of the tips of all digits of the right hand at this time Vascular: Cap refill brisk Pain: Patient reports minimal tenderness to palpation about the right wrist No tenderness to palpation of anatomical snuffbox ROM: Patient was able to make a closed fist and extend all digits of the right hand fully Skin: No lacerations or abrasions. General: Mild edema and resolving ecchymosis noted of the right wrist No erythema or other evidence of infection noted Psych: Appears grossly normal Affect normal Attitude cooperative Office Procedures AMB Fracture Care Details: R distal radius fx Fracture Billing Code: Fracture Billing Code Assessment & Plan Assessment & Plan (1) Fracture of right distal radius: Code(s): S52.501A - Unspecified fracture of the lower end of right radius, initial encounter for closed fracture Category: Medical Plan 1. Nondisplaced fracture of the right distal radius Date of injury 08/31/2024 Patient is educated about this injury Patient was educated about the typical treatment course Patient is educated that he will have a strict 2 lb weight limit in the right hand At this time, patient was informed that he should wear Velcro wrist like a cast for another week, can decrease to use with daytime activities after that point Patient was educated that after this week, he should remove the Velcro wrist splint while at rest and while sleeping to work on range of motion of the right wrist Patient states understanding of this and is amenable this plan Patient will follow-up in 4-5 weeks with repeat x-rays for reassessment, sooner with any acute concerns Orders: Orders XR wrist RT w scaphoid 09/22/24 M79.641 - Pain in right hand Coding Level of Care Code New Pt Level 3 (98040) Diagnoses Fracture of right distal radius S52.501A CPT Codes Fracture Care - Fracture Billing Code: Fracture Billing Code ([id number])
[2024-09-22 11:01] VITALS: BMI 24.3
--- OUTSIDE RECORDS SUMMARY | 2024-09-22 12:43 | XMS_ITS | Encounter Summary ---
Author Organization [facility] Address [address] [place] [address] Phone Care Team Providers Care Lead Web Developer Name Role Phone Iggy Mendez MD Primary Care Provider [phone] Encounter Details Date Type Department Care Team (Late st Contact Info) Description 01/05/2011 Documentation EM Family Medicine [address] [place] [address] Family Medicine, Physician [address] [place], [place] [phone] Social History Tobacco Use Types Packs/Day Years [...] on filedocumented in this encounter Care Teams Lead Web Developer Relationship Specialty Start Date End Date Iggy Mendez MD [address] [place] [address] PCP - General 03/08/17 11/07/22 documented as of this encounter
--- OUTSIDE RECORDS SUMMARY | 2024-09-22 12:43 | XMS_ITS | Encounter Summary ---
Author Organization [facility] Address [address] [place] [address] Phone Care Team Providers Care Best Worker Name Role Phone Iggy Mendez MD Primary Care Provider [phone] Encounter Details Date Type Department Care Team (Late st Contact Info) Description 03/14/2017 Conversion Encounter [facility] [place] [address] [place] [address] Social History Tobacco Use Types Packs/Day Years [...] on filedocumented in this encounter Care Teams Best Worker Relationship Specialty Start Date End Date Iggy Mendez MD [address] [place] [address] PCP - General 03/08/17 11/07/22 documented as of this encounter
--- OUTSIDE RECORDS SUMMARY | 2024-09-22 12:43 | XMS_ITS | Clinical Summary ---
Author Organization [facility] Address [address] [place] [address] Phone Care Team Providers Care Wire Saw Operator Name Role Phone Unavailable Primary Care Provider [...] - 3-dose series) 06/11/2002 04/16/2002, 06/06/2001, 05/14/2001 Influenza Vaccines (#1) 2024 COVID-19 Vaccine ( - season) 2024 HIB Vaccines Completed 06/13/1990 IPV [...]
== END 2024-09-22 12:42 | disposition home or self-care (01) ==
DX: S52.501A Unspecified fracture of the lower end of right radius, initial encounter for closed fracture (principal); W00.0XXA Fall on same level due to ice and snow, initial encounter; Z04.2 Encounter for examination and observation following work accident
CPT/HCPCS: 99203

== ENCOUNTER → 2024-09-22 10:54 | Outpatient (BNV) | payer OTHER, SELFPAY | PROVIDERS: Visit Provider Radiology Diagnostic Radiology | DX: M79.641 Pain in right hand (principal) | CPT/HCPCS: 73110 ==

== ENCOUNTER 2024-10-27 10:27 | Outpatient (REF) | payer OTHER, SELFPAY ==
--- NOTE | ~2024-10-27 | XR_ITS ---
EXAMINATION: XR WRIST 3 OR MORE VIEWS RIGHT HISTORY: M25.531 - Pain in right wrist COMPARISON: Comparison is made with prior examinations dated 09/22/2024 and 08/31/2024. FINDINGS: Three views of the right wrist are submitted. Osseous mineralization is normal. There is a sclerotic band across the distal radial metaphysis consistent with a healing fracture. The joint spaces are preserved. The soft tissues are unremarkable. XR/XR wrist RT min 3V IMPRESSION: Healing transverse fracture of the distal radial metaphysis. Electronically signed by: Paul Zavala MD 10/27/2024 02:29 PM EDT
--- OUTSIDE RECORDS SUMMARY | 2024-10-27 12:19 | XMS_ITS | Clinical Summary ---
Author Organization [facility] Address [address] [place] [address] Phone Care Team Providers Care Mailing Specialist Name Role Phone Unavailable Primary Care Provider [...]
--- OUTSIDE RECORDS SUMMARY | 2024-10-27 12:19 | XMS_ITS | Encounter Summary ---
Author Organization [facility] Address [address] [place] [address] Phone Care Team Providers Care Corn Shucker Name Role Phone Iggy Mendez MD Primary Care Provider [phone] Encounter Details Date Type Department Care Team (Late st Contact Info) Description 03/14/2017 Conversion Encounter [facility] [place] [address] [place] [address] Social History Tobacco Use Types Packs/Day Years [...] on filedocumented in this encounter Care Teams Corn Shucker Relationship Specialty Start Date End Date Iggy Mendez MD [address] [place] [address] PCP - General 03/08/17 11/07/22 documented as of this encounter
--- OUTSIDE RECORDS SUMMARY | 2024-10-27 12:19 | XMS_ITS | Encounter Summary ---
Author Organization [facility] Address [address] [place] [address] Phone Care Team Providers Care Extractor Operator Name Role Phone Iggy Mendez MD Primary Care Provider Encounter Details Date Type Department Care Team (Late st Contact Info) Description 01/05/2011 Documentation EM Family Medicine [address] [place] [address] Family Medicine, Physician [address] [place], [place] [phone] Social History Tobacco Use Types Packs/Day Years [...] on filedocumented in this encounter Care Teams Extractor Operator Relationship Specialty Start Date End Date Iggy Mendez MD [address] [place] [address] PCP - General 03/08/17 11/07/22 documented as of this encounter
== END 2024-10-27 10:28 | disposition home or self-care (01) ==
LOC: HO.HOSX 10:27
DX: M25.531 Pain in right wrist (principal); S52.501D Unspecified fracture of the lower end of right radius, subsequent encounter for closed fracture with routine healing
CPT/HCPCS: 73110; 99212

== ENCOUNTER 2024-10-27 11:14 | Outpatient (AMB) | payer OTHER, SELFPAY ==
--- NOTE | 2024-10-27 11:27 | MHC.OFFVIS ---
Vital Signs 10/27/24 11:28 Height 5 ft 8 in Weight 160 lb BMI 24.3 Handedness Right Intake Visit Reasons: OV-RT wrist sprain DOI 08/31/24-w/xrays Intake Note: Elio is a 34 year old right hand dominant male who presents today for a follow up for his fracture of right distal radius, DOI: 08/31/24. Patient reports he has pain with flexion and extension of the wrist. He expresses numbness on the dorsal side of his right thumb. Allergies No Known Allergies Allergy (Verified 10/27/24 11:31) HPI HPI OV-RT wrist sprain DOI 08/31/24-w/xrays: Details: Elio is a 34 year old right hand dominant male who presents today for a follow up for his fracture of right distal radius, DOI: 08/31/24. Patient reports he has pain with flexion and extension of the wrist. He expresses numbness on the dorsal side of his right thumb. PFSH Medical History (Updated 09/23/24 @ 09:31 by SULTANA Pleitez) Appendicitis Surgical History (Updated 09/22/24 @ 11:00 by Christie Taylor CMA) Hx of appendectomy Social History Current occupational status: employed Current occupation: Maintenance Review of Systems Const All systems reviewed & are unremarkable except as noted in HPI and below Physical Exam Vital Signs: BMI result Body Mass Index 24.3 Extrem Other: Patient is alert, oriented, and in no acute distress. Neuro: Normal sensation of the tips of all digits of the right hand at this time Vascular: Cap refill brisk Pain: Patient reports minimal tenderness to palpation about the right wrist No tenderness to palpation of anatomical snuffbox ROM: Patient was able to make a closed fist and extend all digits of the right hand fully Able to flex the right wrist to approximately 50 degrees and extend the right wrist to approximately 40 degrees, discomfort at the extremes of both range of motion Skin: No lacerations or abrasions. General: Mild edema and resolving ecchymosis noted of the right wrist No erythema or other evidence of infection noted Psych: Appears grossly normal Affect normal Attitude cooperative Results Reviewed Results Reviewed: X-rays obtained in the office today and independently reviewed by me, Seven Villareal PA-C, demonstrate nondisplaced fracture of the right distal radius with evidence of interval bony healing Assessment & Plan Assessment & Plan (1) Fracture of right distal radius: Code(s): S52.501A - Unspecified fracture of the lower end of right radius, initial encounter for closed fracture Category: Medical Plan 1. Nondisplaced right distal radius fracture Date of injury 08/31/2024 Patient appears to be recovering well from and is educated about this injury Patient is educated about the typical recovery course At this time, patient was when he should only be wearing the Velcro wrist splint with high-risk daytime activities Patient was referred to occupational therapy for range of motion and gentle strengthening of the right wrist, as he appears to be quite stiff Due to the stiffness, I do not feel it was advisable for the patient to return to work at this time, as he frequently does a lot of heavy lifting Out of work until follow-up Patient will follow-up in 4-5 weeks for reassessment, sooner if any acute concerns Orders: Orders XR wrist RT min 3V Today M25.531 - Pain in right wrist OT Evaluation and Treatment Today S52.501A - Unspecified fracture of the lower end of right radius, initial encounter for closed fracture Coding Level of Care Code Global (49323) Diagnoses Fracture of right distal radius S52.501A
[2024-10-27 11:28] VITALS: BMI 24.3
--- OUTSIDE RECORDS SUMMARY | 2024-10-27 13:33 | XMS_ITS | Encounter Summary ---
Author Organization [facility] Address [address] [place] [address] Phone Care Team Providers Care Machine Gunner Name Role Phone Iggy Mendez MD Primary Care Provider [phone] Encounter Details Date Type Department Care Team (Late st Contact Info) Description 03/14/2017 Conversion Encounter [facility] [place] [address] [place] [address] Social History Tobacco Use Types Packs/Day Years [...] on filedocumented in this encounter Care Teams Machine Gunner Relationship Specialty Start Date End Date Iggy Mendez MD [address] [place] [address] PCP - General 03/08/17 11/07/22 documented as of this encounter
--- OUTSIDE RECORDS SUMMARY | 2024-10-27 13:33 | XMS_ITS | Encounter Summary ---
Author Organization [facility] Address [address] [place] [address] Phone Care Team Providers Care Quality Assurance Auditor Name Role Phone Iggy Mendez MD Primary Care Provider [phone] Encounter Details Date Type Department Care Team (Late st Contact Info) Description 01/05/2011 Documentation EM Family Medicine [address] [place] [address] Family Medicine, Physician [address] [place], [place] [phone] Social History Tobacco Use Types Packs/Day Years [...] on filedocumented in this encounter Care Teams Quality Assurance Auditor Relationship Specialty Start Date End Date Iggy Mendez MD [address] [place] [address] PCP - General 03/08/17 11/07/22 documented as of this encounter
--- OUTSIDE RECORDS SUMMARY | 2024-10-27 13:33 | XMS_ITS | Clinical Summary ---
Author Organization [facility] Address [address] [place] [address] Phone Care Team Providers Care Apparel Embroidery Digitizer Name Role Phone Unavailable Primary Care Provider [...]
== END 2024-10-27 11:45 | disposition home or self-care (01) ==
LOC: HO.HOS 11:14
DX: S52.501A Unspecified fracture of the lower end of right radius, initial encounter for closed fracture (principal)
CPT/HCPCS: 99213

== ENCOUNTER → 2024-10-27 11:15 | Outpatient (BNV) | payer OTHER, SELFPAY | PROVIDERS: Visit Provider Radiology Diagnostic Radiology | DX: S52.591D Other fractures of lower end of right radius, subsequent encounter for closed fracture with routine healing (principal) | CPT/HCPCS: 73110 ==

== ENCOUNTER 2024-11-24 08:30 | Outpatient (RCR) | payer OTHER, SELFPAY ==
--- NOTE | 2024-11-04 12:54 | MHC.OT.EP ---
[address] [phone] Occupational Therapy Plan of Care Patient Name: Elio Molina Date of Evaluation: 11/04/24 Diagnosis: s/p Right Distal Radius Fracture Pain Location: Pain in right wrist Current: 4/10 Worst: 7/10 Pain Score: 4 Pain Scale Used: Aggravating Factors: Pushing, forceful grasp, lifting Alleviating Factors: Hot water, rest Assessment: Elio is a 34-year-old right-hand dominant male, currently 9 weeks status post distal radius fracture sustained from a slip and fall on ice on 08/31/24. He presents with ongoing pain (4/10) and stiffness, primarily with wrist extension. 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 Objective measures reveal significantly reduced mobile equipment operator strength on the affected side (30# R vs. 65# L), and functional limitations are noted with a QuickDASH score of 45.5%, indicating moderate disability. Patient is motivated to return to full work capacity but is limited by current strength and ROM deficits. Recommending skilled OT to focus on strength, stiffness, and return to work tasks. Frequency and Duration: The patient will be seen 2x/wk for 4 weeks Short Term Goals: Decrease right wrist pain <2/10 with activity Improve right wrist flexion by 10 degrees Improve mobile equipment operator strength by 10# Senior Living Goals: Pain free right wrist with work related tasks Gross grasp >45# IND with progression of HEP Demo increased ease with functional tasks as evidenced by Quick DASH score of <15% Treatment Plan: Therapeutic Exercise Therapeutic Activity Home Exercise Program Patient Education Paraffin MHP Joint Mobilization Soft Tissue Mobilization Electronically Signed By: Priscilla Jang MS OTR/L Please Sign and return to therapist. Thank you once again for your referral.
== END 2024-12-02 13:54 | disposition home or self-care (01) ==
LOC: HO.OTS 08:30
DX: S52.501D Unspecified fracture of the lower end of right radius, subsequent encounter for closed fracture with routine healing (principal)
CPT/HCPCS: 97110; 97165

== ENCOUNTER 2024-12-01 11:19 | Outpatient (AMB) | payer OTHER, SELFPAY ==
--- NOTE | 2024-12-01 11:33 | A.OFFVIS_ITS ---
Vital Signs 12/01/24 11:37 Height 5 ft 8 in Weight 160 lb BMI 24.3 Handedness Right Intake Visit Reasons: OV-RT Distal Radius Fx DOI 08/31/24-w/xrays Intake Note: Elio is a 34 year old right hand dominant male who presents today for a follow up for his fracture of right distal radius, DOI: 08/31/24. At his last visit he was given a velcro wrist splint and instructed to remain out of work. He states he has not returned to work. Expresses he has continued pain in the right wrist with heavy lifting. Reports mild numbness and tingling some times when he wakes up in the morning. Denies stiffness. Allergies No Known Allergies Allergy (Verified 12/01/24 11:40) HPI HPI OV-RT Distal Radius Fx DOI 08/31/24-w/xrays: Details: Elio is a 34 year old right hand dominant male who presents today for a follow up for his fracture of right distal radius, DOI: 08/31/24. At his last visit he was given a velcro wrist splint and instructed to remain out of work. He states he has not returned to work. Expresses he has continued pain in the right wrist with heavy lifting. Reports mild numbness and tingling some times when he wakes up in the morning. Denies stiffness. [facility] Medical History Fracture of right distal radius Appendicitis Surgical History (Updated 09/22/24 @ 11:00 by Christie Taylor [facility]) Hx of appendectomy Social History Current occupational status: employed Current occupation: Maintenance Review of Systems Const All systems reviewed & are unremarkable except as noted in HPI and below Physical Exam Vital Signs: BMI result Body Mass Index 24.3 Extrem Other: Patient is alert, oriented, and in no acute distress. Neuro: Normal sensation of the tips of all digits of the right hand at this time Vascular: Cap refill brisk Pain: Patient reports minimal tenderness to palpation about the right wrist No tenderness to palpation of anatomical snuffbox ROM: Patient was able to make a closed fist and extend all digits of the right hand fully Able to flex the right wrist to approximately 70 degrees and extend the right wrist to approximately 70 degrees Skin: No lacerations or abrasions. General: No edema, erythema, ecchymosis noted Psych: Appears grossly normal Affect normal Attitude cooperative Assessment & Plan Assessment & Plan (1) Fracture of right distal radius: Code(s): S52.501A - Unspecified fracture of the lower end of right radius, initial encounter for closed fracture Category: Medical Plan 1. Nondisplaced right distal radius fracture Date of injury 08/31/2024 Patient appears to be recovering well from and is educated about this injury Patient is educated about the typical recovery course At this time, patient was when he should only be wearing the Velcro wrist splint with high-risk daytime activities Patient was referred to occupational therapy for range of motion and gentle strengthening of the right wrist, as he appears to be quite stiff Patient can return to work with 10-15 lb weight limit for the next 4 weeks, followed by gradual return back to normal activity Patient will follow-up as needed with any acute concerns Coding Level of Care Code Global (30449) Diagnoses Fracture of right distal radius S52.501A
[2024-12-01 11:37] VITALS: BMI 24.3
--- OUTSIDE RECORDS SUMMARY | 2024-12-01 13:09 | XMS_ITS | Encounter Summary ---
Author Organization [facility] Address [address] [place] [address] Phone Care Team Providers Care Barrel Cooper Name Role Phone Iggy Mendez MD Primary Care Provider Gris elias Encounter Details Date Type Department Care Team (Late st Contact Info) Description 01/05/2011 Documentation EM Family Medicine [address] [place], [place] [phone] Family Medicine, Physician [address] [place] [address] Social History Tobacco Use Types Packs/Day Years [...] on filedocumented in this encounter Care Teams Barrel Cooper Relationship Specialty Start Date End Date Iggy Mendez MD PCP - General 03/08/17 11/07/22 documented as of this encounter
--- OUTSIDE RECORDS SUMMARY | 2024-12-01 13:09 | XMS_ITS | Clinical Summary ---
Author Organization [facility] Address [address] [place] [address] Phone Care Team Providers Care Pest Control Service Representative Name Role Phone Unavailable Primary Care Provider [...]
--- OUTSIDE RECORDS SUMMARY | 2024-12-01 13:09 | XMS_ITS | Encounter Summary ---
Author Organization [facility] Address [address] [place] [phone] Phone Care Team Providers Care Compressed Yeast Supervisor Name Role Phone Iggy Mendez MD Primary Care Provider Gris elias Encounter Details Date Type Department Care Team (Late st Contact Info) Description 03/14/2017 Conversion Encounter [facility] - [address] [id number] Social History Tobacco Use Types Packs/Day Years [...] on filedocumented in this encounter Care Teams Compressed Yeast Supervisor Relationship Specialty Start Date End Date Iggy Mendez MD PCP - General 03/08/17 11/07/22 documented as of this encounter
== END 2024-12-01 11:45 | disposition home or self-care (01) ==
LOC: HO.HOS 11:20
DX: S52.501A Unspecified fracture of the lower end of right radius, initial encounter for closed fracture (principal)
CPT/HCPCS: 99213

== ENCOUNTER → 2024-12-01 11:19 | Outpatient (BNVA) | payer OTHER, SELFPAY | DX: S52.501D Unspecified fracture of the lower end of right radius, subsequent encounter for closed fracture with routine healing (principal); X58.XXXD Exposure to other specified factors, subsequent encounter | CPT/HCPCS: 99212 ==